=== PATIENT | female | born 1940 | race Caucasian/White ===

== ENCOUNTER → 2019-04-15 | Outpatient (CLI) | payer MEDICARE, OTHER ==
--- NOTE | 2019-04-15 11:35 | RADIOLOGY REPORT (SQ) ---
EXAM DESCRIPTION: MRI CERVICAL SPINE WITHOUT COMPLETED DATE/TIME: 04/15/2019 11:20 am REASON FOR STUDY: CERVICALGIA M54.2 CERVICALGIA COMPARISON: None. TECHNIQUE: Sagittal and Axial imaging includes T1, T2, STIR and gradient echo sequences. LIMITATIONS: None. FINDINGS: ALIGNMENT: There is slight retrolisthesis of C4 on C5. VERTEBRAE: Intact. BONE MARROW: Normal. No marrow replacement or reactive changes. DISCS: Multilevel disc space narrowing a loss of normal water signal consistent with desiccation. HARDWARE: None in the spine. CORD AND BASE OF BRAIN: Normal in size and signal intensity. SOFT TISSUES: No soft tissue masses. C1-C2: No significant spinal stenosis. C2-C3: No significant spinal stenosis or exit foraminal stenosis. C3-C4: Broad-based disc/osteophyte complex. No central stenosis. There is bilateral foraminal narro wing. C4-C5: Broad-based disc/osteophyte complex with mild central canal stenosis. There is bilateral fora colleen stenosis right greater than left. C5-C6: Broad-based disc/osteophyte complex. Mild central canal narrowing. There is bilateral forami nal stenosis. C6-C7: No significant spinal stenosis or exit foraminal stenosis. C7-T1: No significant spinal stenosis or exit foraminal stenosis. UPPER THORACIC: Incompletely imaged. No significant spinal stenosis or exit foraminal stenosis. OTHER: No other significant finding. IMPRESSION: 1. Multilevel spondylosis. 2. Broad-based disc/ osteophyte complex at C3-4 with bilateral foraminal narrowing. 3. Broad-based disc/ osteophyte complex at C4-5 with mild central stenosis and bilateral foraminal s tenosis right greater than left. 4. Broad-based disc/ osteophyte complex at C5-C6 with mild central canal narrowing and bilateral for aminal stenosis. TECHNICAL DOCUMENTATION: JOB ID: [id number] [employer]- All Rights Reserved Reading location - IP/workstation name: [email or web address]
== END ==
LOC: RAD 10:49
PROVIDERS: ATTEND Orthopaedic Surgery
DX: M54.2 Cervicalgia (principal); M48.02 Spinal stenosis, cervical region
CPT/HCPCS: 72141